=== PATIENT | female | born 1950 | race Native Hawaiian/Other Pacific Islander ===

== ENCOUNTER 2016-09-15 15:54 | Emergency (ER) | payer OTHER, MEDICARE ==
[~2016-09-15] VITALS: Ht 149.9 cm; Wt 73.6 kg
[~2016-09-15 15:54] MED LIST: ALBU2.5V4 INHALATION; BECL8.7A5 IH; CITA20TA11 PO; CYCL5TAB PO; FAMO40TA6 PO; FLUT16SP NS; HYDR-4003 PO; INSLIS SUBQ; INSU100V7 SUBQ; KEN25CR EXT; LIP40 PO; LOSA100T29 PO; METF500T4 PO; METH750T3 PO; METO50TA3 PO; MULT-1073 PO; OXYC-465 PO
[2016-09-15 16:15] VITALS: BP 159/75; PULSE 73; RESP 14; O2SAT 96
--- NOTE | 2016-09-15 16:25 | ED.REPORT ---
HPI-General Illness Date of Service September 15, 2016 ED Provider: Yogesh Ardon MD Pt is a 66 y/o female w/ a hx of chronic upper back pain due to injury in 2014, CAD, NIDDM, HTN, asthma, anxiety, presenting to the ED c/o spasming right-upper back pain onset 3 weeks ago. Pain is exacerbated by movement, bending and twisting, and deep breathing. She denies CP, fever, chills, cough, abdominal pain, numbness, weakness, bowel or bladder incontinence, dysuria. She denies any recent trauma. She has no history of lung disease. She has been taking Oxycodone for her chronic back pain which she states "knocks her out" but doesn' t touch the pain. She states this pain is different than her typical chronic back pain. Nursing Notes Stated Complaint: UPPER BACK PAIN,HARD TO BREATH Chief Complaint: Back Pain or Injury Nursing Notes Reviewed: Yes Allergies: Coded Allergies: Penicillins (Verified Allergy, Severe, 04/12/14) codeine (Verified Allergy, Severe, UNKNOWN, 04/12/14) iodine (Verified Allergy, Severe, 04/12/14) latex (Verified Allergy, Severe, 04/12/14) povidone (Verified Allergy, Severe, RASH, 04/12/14) lisinopril (Verified Allergy, Unknown, 08/10/15) metoclopramide (Verified Allergy, Unknown, 08/10/15) Uncoded Allergies: TAPES (Allergy, Unknown, PAPER TAPE OK OTHERS RASH, 10/12/04) Scheduled Atorvastatin (Lipitor) 40 Mg Tablet 40 MG PO DAILY Beclomethasone Dipropionate (Qvar) 8.7 Gm Aer.w.adap 8.7 GM IH BID Citalopram (Citalopram) 20 Mg Tablet 20 MG PO DAILY Famotidine (Famotidine) 40 Mg Tablet 40 MG PO HS Insulin Glargine (Lantus U100 Insulin Vial) 100 Unit/Ml Vial 50 UNIT SUBQ QAM Insulin Glargine (Lantus U100 Insulin Vial) 100 Unit/Ml Vial 35 UNIT SUBQ QPM Losartan Potassium (Losartan Potassium) 100 Mg Tablet 100 MG PO DAILY Metformin (Metformin) 500 Mg Tablet 500 MG PO TID Metoprolol Tartrate (Metoprolol Tartrate) 50 Mg Tablet 25 MG PO BID Multivits-Min/FA/Lycopene/Lut (Centrum Silver Tablet) 1 Each Tablet 1 EACH PO DAILY Scheduled PRN Albuterol Neb Soln (Albuterol Neb Soln) 2.5 Mg/3 Ml Vial.neb 2.5 MG INHALATION Q4H PRN PRN For Shortness of Breath Cyclobenzaprine (Cyclobenzaprine) 5 Mg Tablet 5 MG PO TID PRN PRN Spasm Fluticasone Propionate (Fluticasone Propionate Nasal) 16 Gm [place].susp 2 SPRAY NS BID PRN PRN seasonal allergies Hydrocodone-Acetaminophen 5-325 mg (Hydrocodone-Acetaminophen 5-325 mg) 1 Each Tablet 1 TABLET PO Q4H PRN PRN For Pain Insulin Human Lispro (HumaLOG U100 Insulin Vial) 100 Unit/Ml Unit 18-25 UNIT SUBQ TID PRN PRN sliding scale Check blood sugars before meals and at bedtime. Use correction factor only before meals. Blood Sugar Lispro Correction: <151, 0 units; 151-175, 1 unit; 176-200, 2 units; 201-225, 3 units; 226-250, 4 units; 251-275, 5 units; 276-300 , 6 units; 301-325, 7 units; 326-350, 8 units; 351-375, 9 units; 376-400, 10 units; >400, 12 units. Methocarbamol (Methocarbamol) 750 Mg Tablet 750 MG PO BID PRN PRN For Spasm Triamcinolone Acet (Triamcinolone Acetonide Cream) 1 Applic/0.25 Gm Cr 1 APPLIC EXT 3-4xdaily PRN PRN rash oxyCODONE-Acetaminophen 7.5-325 mg (oxyCODONE-Acetaminophen 7.5-325 mg) 1 Each Tablet 1-2 TAB PO Q6H PRN PRN For Pain General Time Seen by MD: 16:24 Chief Complaint Back pain Hx Obtained From: Patient Arrived By: Walk-in Sudden in Onset?: No Onset Occurred: More than a week ago... (3 weeks) Symptom Duration: Since onset Location: : Back Quality: Painful Severity: Current: Moderate Severity: Maximum: Severe Recent Healthcare: Previous diagnosis, Prior workup Similar Sx Previous: Yes Past Medical History Past Medical History Notes: Last Admit, Asthma - 08/01- Past Medical History Anxiety Sleep apnea Chronic back pain caused by prior injury Reports: Asthma, Coronary artery disease, Diabetes mellitus, Hypertension Past Surgical History PTCA in 2006 for coronary disease Reports: Cholecystectomy Reports: Carpal tunnel Family History grandfather: enlargement of the heart father: at 70 [place] denies any family history of PE, or deep vein thrombosis, cancer, immobilization. Smoking History Never Smoker Social History Alcohol Use: Denies alcohol use Drug Use: Denies drug use Ambulatory Status Independent Review of Systems Full Review of Systems Constitutional: Denies: Chills, Fever Respiratory: Reports: Pleuritic pain, Shortness of breath, Denies: Non-productive cough Cardiovascular: Denies: Chest pain, Dyspnea on exertion GI: Denies: Abdominal pain, Nausea, Vomiting Female: Denies: Dysuria, Flank pain Musculoskeletal: Reports: Back pain, Thoracic pain Neurologic: Denies: Bladder dysfunction, Bowel dysfunction Complete sys rev & neg: except as marked. Physical Exam Vital Signs Vital Signs Date Time Temp Pulse Resp B/P Pulse Ox O2 Delivery O2 Flow Rate FiO2 09/15/16 16:15 36.8 73 14 159/75 96 Room Air Initial VS: Reviewed, Vital signs normal Head / Eyes: Atraumatic, Normocephalic, PERRL ENT: Mucous membranes moist, Conjunctiva normal, No scleral icterus Neck: Supple, Full range of motion Respiratory: Breath sounds normal, Clear to auscultation, No respiratory distress Cardiovascular: Regular rate & rhythm, Heart sounds normal, Intact distal pulses Abdomen / GI: Soft, Non-tender, No guarding, No rebound, No distention Extremities: Vascular intact, Neuro intact, No swelling, No tenderness Skin: Warm, Dry, No cyanosis Neurologic: Alert, Oriented, Nonfocal Psychiatric: Mood/affect normal, Behavior normal, Normal thought content General/Constitutional: Awake, Alert, Cooperative, Not toxic appearing Distress / Hydration: Positive: Distress mild Appearance / Presentation: Positive: In pain, Uncomfortable Back: Full range of motion Appears very uncomfortable with movement Reproducible tenderness with palpation of the right lateral chest wall Interpretation & Diagnostics Lab Results Interpretation Result Diagram: 09/15/16 1824 09/15/16 1824 Test 09/15/16 18:24 09/15/16 20:25 White Blood Count 9.1th/mm3 (3.8-10.1) Red Blood Count 3.86mil/mm3 (3.90-5.20) Hemoglobin 11.2g/dL (12.0-15.6) Hematocrit 35.2% (35.0-46.0) Mean Corpuscular Volume 91.2fL (81-100) Mean Corpuscular Hemoglobin 29.0pg (27.0-35.0) Mean Corpuscular Hemoglobin Concent 31.8% (32.0-37.0) Red Cell Distribution Width 12.5% (12.3-15.4) Platelet Count 253bil/L (150-400) Neutrophils (%) (Auto) 49.5% (40-74) Lymphocytes (%) (Auto) 36.0% (14-46) Monocytes (%) (Auto) 10.1% (4-12) Eosinophils (%) (Auto) 4.1% (0-5) Basophils (%) (Auto) 0.2% (0-3) D-Dimer < 0.50mg/L FEU (<0.50) Sodium Level 138mEq/L (134-144) Potassium Level 3.8mEq/L (3.5-5.2) Chloride Level 99mEq/L (97-108) Carbon Dioxide Level 26mmol/L (18-29) Blood Urea Nitrogen 19mg/dL (8-27) Creatinine 0.74mg/dL (0.57-1.00) Estimat Glomerular Filtration Rate 112mL/min (>59) Glucose Level 207mg/dL (60-99) Calcium Level 9.2mg/dL (8.5-10.1) Magnesium Level 1.8mg/dL (1.6-2.6) Total Bilirubin 0.4mg/dL (0.0-1.2) Aspartate Amino Transf (AST/SGOT) 20U/L (0-50) Alanine Aminotransferase (ALT/SGPT) 19U/L (0-32) Alkaline Phosphatase 99U/L (25-165) Troponin T < 0.010ug/L (0.0-0.011) Total Protein 7.3g/dL (6.4-8.4) Albumin 3.8g/dL (3.4-5.0) Hold Espitia Top Tube Received (Received) ECG Interpretation Time: 19:55 Interpreted by: ED physician Normal ECG Interpretation: Normal ECG w/ rate of... (66), Normal rate, Normal sinus rhythm, No acute ischemic changes, Normal QRS, Normal axis, Normal intervals, No change from prior ECGs, Adequate tracing X-Ray Chest Interpretation Chest Xray Interpretation: IMPRESSION: No acute process. Dictated by: Arie Gorman M.D. on 09/15/2016 at 19:01 Approved by: Arie Gorman M.D. on 09/15/2016 at 19:01 View: Portable, 1 view Interpretation / Wet Read by: Interpret - Radiologist Re-Eval/Medical Decision Med Decision/Clinical Course Pt is a 66 y/o female w/ a hx of chronic upper back pain due to injury in 2014, CAD, NIDDM, HTN, asthma, anxiety, presenting to the ED c/o spasming right-upper back pain onset 3 weeks ago. Pain is exacerbated by movement, bending and twisting, and deep breathing. She denies CP, fever, chills, cough, abdominal pain, numbness, weakness, bowel or bladder incontinence, dysuria. She denies any recent trauma. She has no history of lung disease. She has been taking Oxycodone for her chronic back pain which she states "knocks her out" but doesn' t touch the pain. She states this pain is different than her typical chronic back pain. Here in the emergency department the patient is afebrile stable vital signs and examination as above. Her pain is easily reproducible by movement and palpation. Labs notable as below: CBC: Unremarkable CMP: Unremarkable other than glucose of 207 Troponin negative D-dimer negative UA: Trace blood, otherwise unremarkable CXR: Obtained, reviewed and interpreted by myself shows no evidence of infiltrates, effusions or pneumothorax. Cardiac and mediastinal silhouette normal. No bony or soft tissue abnormalities. EKG: Normal ECG w/ rate of... (66), Normal rate, Normal sinus rhythm, No acute ischemic changes, Normal QRS, Normal axis, Normal intervals, No change from prior ECGs, Adequate tracing At this time, overall presentation is most consistent with musculoskeletal pain. She is already on chronic oxycodone for pain and I do not feel that further treatment with narcotic pain medications as indicated. I offered her Lidoderm patches however she states that she is allergic. She also states that she cannot take NSAIDs. I have advised her to take Tylenol 650 mg 3 times a day , stretch and apply ice packs/hot packs. I considered other causes of the patient's presentation today including acute coronary syndrome however the nature of her pain is not suggestive thereof and initial screening EKG and troponin are reassuring. She has no physical exam findings suggestive of DVT and she is relatively at low risk for pulmonary embolism. I opted to obtain a d -dimer which was negative and at this time my suspicion for PE is extremely low. I also considered renal colic as a cause of her pain however she has only trace blood on her urinalysis and her pain is not colicky in nature or classically suggestive of kidney stone. I do not feel that further workup for kidney stone as indicated. There are no findings suggestive of UTI. Discussed findings as above with the patient and she is comfortable with discharge. She is happy with this plan. She will follow up closely with her primary care physician. Prior to discharge follow-up and return precautions were reviewed in detail with the patient who verbalized understanding and agreement with the plan. The patient was discharged in stable condition. Counseled Regarding: Diagnosis, Need for follow-up, When/why to return to ED Discharge & Departure Primary Impression: Chest wall pain Additional Impressions: History of back injury Muscle spasm Chronic pain Chronic pain type: other chronic pain Qualified Code: G89.29 - Other chronic pain Opiate dependence Substance use status: with unspecified opioid-induced disorder Qualified Code : F11.29 - Opioid dependence with unspecified opioid-induced disorder Disposition: Home Discharge Condition All VS Reviewed: Yes Condition: Stable Additional Instructions: Thank you for seeking care at the emergency room. It is difficult for us to make definitive diagnoses in the ED but we believe that you are experiencing muscle pain. Our primary goal today in the ED was to evaluate you for any life-threatening conditions. Your evaluation was reassuring. I recommend using ice packs/hot packs and stretching. He may take Tylenol 650 mg 3 times a day. You should follow-up with your primary doctor in the next week. You should return to the ED immediately if you develop increasing pain, bloody your urine, difficulty breathing, fevers, vomiting, cough, shortness of breath, chest pain, lightheadedness, weakness or any other concerning signs or symptoms. Thank you for letting us partake in your care today. Referrals: Krzysztof Bates MD (PCP) Scribe Attestation Portions of this note were transcribed by Ashwin Collado. I, Dr. Joyner personally performed the history, physical exam and medical decision-making; I reviewed and confirmed the accuracy of the information in the transcribed note. Signed by Yousif Stephen, 09/15/16 - 1805 copies to: Krzysztof Bates MD, Beck O MD September 15, 2016 16:25 ASHWIN COLLADO September 15, 2016 16:30
[2016-09-15 18:34] LABS: BASOPHILS % (AUTO) 0.2 % (0-3); EOSINOPHILS % (AUTO) 4.1 % (0-5); MONOCYTES % (AUTO) 10.1 % (4-12); Mean Corpuscular Volume 91.2 fL (81-100); NEUTROPHILS % (AUTO) 49.5 % (40-74); Platelet Count 253 bil/L (150-400)
[2016-09-15 18:56] LABS: TROPONIN T < 0.010 ug/L (0.0-0.011)
--- NOTE | 2016-09-15 19:03 | DRSVH ---
PROCEDURE: X-RAY CHEST, TWO VIEWS ([id number]) INDICATIONS: CHEST PAIN TECHNIQUE: 2 views of the chest were acquired. COMPARISON: [facility], CR, XR CHEST 2VW, 04/30/2015, 0:00. FINDINGS: Surgical changes and devices: None. Lungs and pleura: No pleural effusions or pneumothorax. Lungs are clear. Mediastinum: Mediastinal contours are normal. Heart size is enlarged. Bones and chest wall: No suspicious bony abnormalities. Soft tissues appear unremarkable. IMPRESSION: No acute process. Dictated by: Arie Gorman M.D. on 09/15/2016 at 19:01 Approved by: Arie Gorman M.D. on 09/15/2016 at 19:01
[2016-09-15 19:07] LABS: Magnesium 1.8 mg/dL (1.6-2.6)
[2016-09-15 20:33] LABS: APPEARANCE,URINE CLEAR (CLEAR,HAZY); COLOR,URINE STRAW (YELLOW); OCCULT BLOOD,URINE NEGATIVE (NEGATIVE); UROBILINOGEN,URINE NORMAL (NORMAL)
[2016-09-15 20:41] VITALS: BP 157/62; PULSE 74; RESP 16; O2SAT 94
== END 2016-09-15 20:42 | disposition home or self-care (01) ==
LOC: SED 15:54
DX: R07.9 Chest pain, unspecified (principal); M62.838 Other muscle spasm; G89.29 Other chronic pain; F11.29 Opioid dependence with unspecified opioid-induced disorder; E11.9 Type 2 diabetes mellitus without complications; I25.10 Atherosclerotic heart disease of native coronary artery without angina pectoris; I10 Essential (primary) hypertension; Z87.828 Personal history of other (healed) physical injury and trauma; Z79.84 Long term (current) use of oral hypoglycemic drugs; Z79.4 Long term (current) use of insulin; Z79.899 Other long term (current) drug therapy; Z88.0 Allergy status to penicillin; Z88.5 Allergy status to narcotic agent; Z88.8 Allergy status to other drugs, medicaments and biological substances; Z91.040 Latex allergy status

== ENCOUNTER 2016-09-27 07:43 | Emergency (ER) | payer OTHER, MEDICARE ==
[~2016-09-27] VITALS: Ht 162.6 cm; Wt 73.6 kg
--- NOTE | 2016-09-27 07:40 | ED.REPORT ---
HPI-Abd Pain F 40 and Over Date of Service Sep 27, 2016 ED Provider: Dr. Romero Pt is a 66 y/o female w/ a hx of chronic pain with opiate dependence, CAD, IDDM , HTN, presenting to the ED via EMS c/o sudden onset periumbilical abdominal pain which began 04:00 today. The patient told EMS she began to experience severe sudden onset periumbilical abdominal pain radiating to all 4 quadrants. She apparently has never experienced abdominal pain like this previously. EMS reports 1 episode of emesis while on route. She was apparently in quite a bit of distress and was given Fentanyl and Phenergan. She arrives moderately sedated and unable to provide a history. Nursing Notes Stated Complaint: ABDOMINAL PAIN Nursing Notes Reviewed: Yes Allergies: Coded Allergies: Penicillins (Verified Allergy, Severe, 04/12/14) codeine (Verified Allergy, Severe, UNKNOWN, 04/12/14) iodine (Verified Allergy, Severe, 04/12/14) latex (Verified Allergy, Severe, 04/12/14) povidone (Verified Allergy, Severe, RASH, 04/12/14) aspirin (Verified Allergy, Unknown, 09/27/16) lisinopril (Verified Allergy, Unknown, 08/10/15) metoclopramide (Verified Allergy, Unknown, 08/10/15) Uncoded Allergies: TAPES (Allergy, Unknown, PAPER TAPE OK OTHERS RASH, 10/12/04) Scheduled Atorvastatin (Lipitor) 40 Mg Tablet 40 MG PO DAILY Beclomethasone Dipropionate (Qvar) 8.7 Gm Aer.w.adap 8.7 GM IH BID Citalopram (Citalopram) 20 Mg Tablet 20 MG PO DAILY Famotidine (Famotidine) 40 Mg Tablet 40 MG PO HS Insulin Glargine (Lantus U100 Insulin Vial) 100 Unit/Ml Vial 50 UNIT SUBQ QAM Insulin Glargine (Lantus U100 Insulin Vial) 100 Unit/Ml Vial 35 UNIT SUBQ QPM Losartan Potassium (Losartan Potassium) 100 Mg Tablet 100 MG PO DAILY Metformin (Metformin) 500 Mg Tablet 500 MG PO TID Metoprolol Tartrate (Metoprolol Tartrate) 50 Mg Tablet 25 MG PO BID Multivits-Min/FA/Lycopene/Lut (Centrum Silver Tablet) 1 Each Tablet 1 EACH PO DAILY Scheduled PRN Albuterol Neb Soln (Albuterol Neb Soln) 2.5 Mg/3 Ml Vial.neb 2.5 MG INHALATION Q4H PRN PRN For Shortness of Breath Cyclobenzaprine (Cyclobenzaprine) 5 Mg Tablet 5 MG PO TID PRN PRN Spasm Fluticasone Propionate (Fluticasone Propionate Nasal) 16 Gm Brady.susp 2 SPRAY NS BID PRN PRN seasonal allergies Hydrocodone-Acetaminophen 5-325 mg (Hydrocodone-Acetaminophen 5-325 mg) 1 Each Tablet 1 TABLET PO Q4H PRN PRN For Pain Insulin Human Lispro (HumaLOG U100 Insulin Vial) 100 Unit/Ml Unit 18-25 UNIT SUBQ TID PRN PRN sliding scale Check blood sugars before meals and at bedtime. Use correction factor only before meals. Blood Sugar Lispro Correction: <151, 0 units; 151-175, 1 unit; 176-200, 2 units; 201-225, 3 units; 226-250, 4 units; 251-275, 5 units; 276-300 , 6 units; 301-325, 7 units; 326-350, 8 units; 351-375, 9 units; 376-400, 10 units; >400, 12 units. Methocarbamol (Methocarbamol) 750 Mg Tablet 750 MG PO BID PRN PRN For Spasm Triamcinolone Acet (Triamcinolone Acetonide Cream) 1 Applic/0.25 Gm Cr 1 APPLIC EXT 3-4xdaily PRN PRN rash oxyCODONE-Acetaminophen 7.5-325 mg (oxyCODONE-Acetaminophen 7.5-325 mg) 1 Each Tablet 1-2 TAB PO Q6H PRN PRN For Pain General Time Seen by MD: 07:42 Chief Complaint Abdominal pain Hx Obtained From: Patient, EMS Arrived By: Ambulance Sudden in Onset?: Yes Onset Occurred: 1 - 4 hours ago Symptom Duration: Since onset Progression since Onset: Gradually improving Location: : Periumbilical Quality: Painful Radiation: : LLQ: LUQ: RLQ: RUQ Severity: Current: No pain currently Severity: Maximum: Severe Similar Sx Previous: No Past Medical History Past Medical History Anxiety Sleep apnea Chronic back pain caused by prior injury Right thyroid nodule s/p removal Reports: Asthma, Coronary artery disease, Diabetes mellitus, Hypertension Past Surgical History PTCA in 2005 for coronary disease Right thyroid nodule removal Reports: Cholecystectomy Reports: Carpal tunnel Family History grandfather: enlargement of the heart father: at 70 NM denies any family history of PE, or deep vein thrombosis, cancer, immobilization. Smoking History Never Smoker Social History Alcohol Use: Denies alcohol use Drug Use: Denies drug use Ambulatory Status Independent Review of Systems Constitutional: Denies: Chills, Fever Respiratory: Denies: Non-productive cough, Shortness of breath Cardiovascular: Denies: Chest pain, Dyspnea on exertion GI: Reports: Abdominal pain, Nausea, Vomiting Complete sys rev & neg: except as marked. Physical Exam Vital Signs Vital Signs (First) Date Time Temp Pulse Resp B/P Pulse Ox O2 Delivery O2 Flow Rate FiO2 09/27/16 07:44 36.8 67 17 135/49 95 Room Air Initial VS: Reviewed, Vital signs normal ENT: Mucous membranes moist, Conjunctiva normal, No scleral icterus Neck: Supple, Full range of motion Extremities: Vascular intact, Neuro intact, No swelling, No tenderness Skin: Warm, Dry, No cyanosis Psychiatric: Mood/affect normal, Behavior normal, Normal thought content General/Constitutional: Awake, Alert, No acute distress, Cooperative, Not toxic appearing Somnolent but arousable Respiratory / Chest: Breath sounds NL, Breath sounds = bilat, No respiratory distress, No rales, No rhonchi, No wheezing, No retractions, No stridor Cardiovascular: Heart rate NL, Regular rhythm, Heart sounds NL, No murmurs, Cap refill not delayed, Peripheral circulation NL Periph CV / BP Differential: Positive: Peripheral pulses 2+ (PT) Abdomen: Atraumatic, Soft, No guarding, No rebound, No distention, No palpable mass Tenderness/Guarding/Rebound: Positive: Tender epigastric, Negative: Tender LLQ..., Tender LUQ..., Tender RLQ..., Tender RUQ... Non-tender although sedated therefore exam is limited Back: Full range of motion, Painless range of motion Head / Eyes: Atraumatic, Normocephalic Pinpoint pupils Neurologic: No motor deficits, No sensory deficits Somnolent but arousable Interpretation & Diagnostics Lab Results Interpretation Result Diagram: 09/27/16 0816 09/27/16 0816 Test 09/27/16 08:16 09/27/16 08:35 09/27/16 10:05 09/27/16 11:47 White Blood Count 8.1th/mm3 (3.8-10.1) Red Blood Count 4.01mil/mm3 (3.90-5.20) Hemoglobin 11.8g/dL (12.0-15.6) Hematocrit 36.7% (35.0-46.0) Mean Corpuscular Volume 91.5fL (81-100) Mean Corpuscular Hemoglobin 29.4pg (27.0-35.0) Mean Corpuscular Hemoglobin Concent 32.2% (32.0-37.0) Red Cell Distribution Width 12.2% (12.3-15.4) Platelet Count 274bil/L (150-400) Neutrophils (%) (Auto) 59.9% (40-74) Lymphocytes (%) (Auto) 27.1% (14-46) Monocytes (%) (Auto) 7.9% (4-12) Eosinophils (%) (Auto) 4.7% (0-5) Basophils (%) (Auto) 0.2% (0-3) Sodium Level 136mEq/L (134-144) Potassium Level 4.2mEq/L (3.5-5.2) Chloride Level 98mEq/L (97-108) Carbon Dioxide Level 24mmol/L (18-29) Blood Urea Nitrogen 19mg/dL (8-27) Creatinine 0.67mg/dL (0.57-1.00) Estimat Glomerular Filtration Rate 125mL/min (>59) Glucose Level 243mg/dL (60-99) Calcium Level 9.2mg/dL (8.5-10.1) Magnesium Level 1.8mg/dL (1.6-2.6) Total Bilirubin 0.6mg/dL (0.0-1.2) Aspartate Amino Transf (AST/SGOT) 16U/L (0-50) Alanine Aminotransferase (ALT/SGPT) 18U/L (0-32) Alkaline Phosphatase 102U/L (25-165) Total Protein 7.2g/dL (6.4-8.4) Albumin 3.8g/dL (3.4-5.0) Lipase 95U/L (13-60) Troponin T 0.010ug/L (0.0-0.011) Hold Red Top Tube Received (Received) Hold Rentz Top Tube Received (Received) Urine Color Straw (YELLOW) Urine Appearance Clear (CLEAR,HAZY) Urine pH 6.0 (5.0-8.0) Urine Specific [place] 1.020 (1.003-1.035) Urine Protein 30mg/dL (NEG,TRACE) Urine Glucose (UA) 500mg/dL (NEGATIVE) Urine Ketones Negativemg/dL (NEGATIVE) Urine Occult Blood Negative (NEGATIVE) Urine Nitrite Negative (NEGATIVE) Urine Bilirubin Negative (NEGATIVE) Urine Urobilinogen Normalmg/dL (NORMAL) Urine Leukocyte Esterase Negative (NEGATIVE) Urine RBC 0-2/hpf (0-2) Urine WBC 0-5/hpf (0-5) Urine Epithelial Cells Occasional/hpf (NONE-MOD) Urine Crystals None seen (NONE SEEN) Urine Bacteria None/hpf (NONE-FEW) Urine Hyaline Casts None/lpf (NONE) Urine Granular Casts None seen (NONE SEEN) Urine Waxy Casts None seen (NONE SEEN) Urine Red Blood Cell Casts None seen (NONE SEEN) Urine White Blood Cell Casts None seen (NONE SEEN) Urine Mucus None seen (None Seen) Urine Trichomonas None seen (NONE SEEN) Urine Yeast None (NONE SEEN) Urinalysis Comment None Urine Culture Reflexed Not indicated Lactic Acid Level 2.3mmol/L (0.4-2.0) ECG Interpretation ECG Interpretation: Sinus rhythm rate [address] changes Time: 08:03 Interpreted by: ED physician Normal ECG Interpretation: No acute ischemic changes CT Abd / Pelvis Interpretation IMPRESSION: 1. Cause of abdominal pain is not identified. No inflammation mass stone or obstruction is seen. 2. Previous cholecystectomy. Small hiatal hernia. Dictated by: Gino Doherty M.D. on 09/27/2016 at 9:06 Approved by: Gino Doherty M.D. on 09/27/2016 at 9:11 Study type: Abdominal CT no contrast Interpretation / Wet Read by: Interpret - Radiologist Re-Eval/Medical Decision Med Decision/Clinical Course Patient presents severely sedated with report of severe abdominal pain. Her initial outside abdominal exam at arrival is reassuring however given her level of sedation from paramedics, more resource intensive workup was performed which included basic labs and a CAT scan. No IV contrast could be given because of an iodine allergy. Her noncontrast CT is normal with normal caliber aorta. She has intact and symmetric distal dorsalis pedis pulses with a normal blood pressure this seems unlikely to be aortic dissection. After the medication from paramedics had cleared she is complaining of mild epigastric discomfort and repeat exam does not show focal rebound or guarding. These symptoms resolved after a dose of GI cocktail. Through the entirety of the rest of her ER visit she has remained asymptomatic. Her vital signs have remained normal with the exception of a single episode of tachypnea. Troponin is performed to exclude atypical NM, lipase is minimally out of range but not clinically consistent with pancreatitis. She continues to feel better and asymptomatic after GI cocktail and IV fluids, she has been ambulatory to the restroom and back without event. Serial lactic acid's continue to trend downward. Overall picture is nonspecific however cannot identify a life-threatening cause for her symptoms. Etiology such as aortic dissection, mesenteric ischemia, perforated viscus, pancreatitis, cholecystitis, diverticulitis or abscess, or other life-threatening intra-abdominal pathology seem less likely. Patient is feeling better and is agreeable for discharge. Will prescribe Zofran. Strict return and follow-up precautions given. Re-Evaluation/Progress #1: Time of Eval: 08:31 Re-Evaluation/Progress Note: Pt rechecked. No longer sedated. She concurs with the history given by medics. Her pain has decreased. Re-Evaluation/Progress #2: Time of Eval: 09:05 Re-Evaluation/Progress Note: Pt rechecked. She is now more awake. She reports her pain is all epigastric. She now has mild epigastric pain to palpation and is non-tender in all 4 quadrants. No Rebound or Guarding on exam. Re-Evaluation/Progress #3: Time of Eval: 10:20 )( Re-Eval Abdomen: Soft, Non-tender, No guarding, No rebound Patient Status: Condition resolved Re-Evaluation/Progress Note: Pain resolved after Gi cocktail, rpt abd exam and vital signs reassuring Re-Evaluation/Progress #4: Time of Eval: 12:30 )( Re-Eval Abdomen: Soft, Non-tender, No guarding, No rebound, McBurney's non-tender, No distention Evaluation: Abdomen soft/non-tender, Mental status normal, Neurologic nonfocal Re-Evaluation/Progress Note: Discussed lab results and patient ambulated to and from the restroom without event. She feels better. Able for discharge home. Return in follow-up precautions discussed. Counseled Regarding: Diagnosis, Need for follow-up, When/why to return to ED Discharge & Departure Primary Impression: Abdominal pain Abdominal location: epigastric Qualified Code: R10.13 - Epigastric pain Disposition: Home Discharge Condition All VS Reviewed: Yes Condition: Stable Patient Instructions: Acute Abdominal Pain (ED) Additional Instructions: The cause of your pain is uncertain, but does not seem dangerous at this point. Your labs were reassuring and the CT scan was normal. Follow-up with your doctor on Thursday or Thursday if symptoms persist. Return to the emergency department immediately for worsening or uncontrolled pain, fever, shaking chills, persistent vomiting, or for other concerning symptoms. Referrals: Krzysztof Bates MD (PCP) Tamikaibe Attestation Portions of this note were transcribed by Ashwin Collado. I, Dr. Romero personally performed the history, physical exam and medical decision-making; I reviewed and confirmed the accuracy of the information in the transcribed note. Signed by Yousif Stephen, 09/27/16 - 08 Attending Statement See MDM copies to: Krzysztof Bates MD, Timothy S DO Sep 27, 2016 07:40 ASHWIN COLLADO Sep 27, 2016 07:43 Seamus Bird Sep 27, 2016 09:13
[2016-09-27 07:44] VITALS: BP 135/49; PULSE 67; RESP 17; O2SAT 95
[2016-09-27] MEDS ORDERED: 0.9% Sodium Chloride 1,000 ML IV ONE ×2 (07:49→10:45)
[2016-09-27] MEDS ORDERED: Ondansetron 2 mg/mL 2 mL Inj IVPUSH PRN (07:50)
[2016-09-27 08:23] LABS: BASOPHILS % (AUTO) 0.2 % (0-3); EOSINOPHILS % (AUTO) 4.7 % (0-5); MONOCYTES % (AUTO) 7.9 % (4-12); Mean Corpuscular Hemoglobin 29.4 pg (27.0-35.0); Mean Corpuscular Volume 91.5 fL (81-100); NEUTROPHILS % (AUTO) 59.9 % (40-74); Platelet Count 274 bil/L (150-400)
[2016-09-27 08:45] LABS: Magnesium 1.8 mg/dL (1.6-2.6)
[2016-09-27 09:06] VITALS: BP 125/40; PULSE 71; RESP 25; O2SAT 97
--- NOTE | 2016-09-27 09:12 | DRSVH ---
PROCEDURE: CT ABDOMEN AND PELVIS WITHOUT CONTRAST ([id number]) INDICATIONS: abd pain, iodine allergy TECHNIQUE: Noncontrast 5 mm thick sections acquired from the diaphragms to the symphysis. 5 mm coronal and sagi ttal reformats were then performed. For radiation dose reduction, the following was used: automated exposure control, adjustment of mA and/or kV according to patient size. COMPARISON: None. FINDINGS: Image quality: Good ABDOMEN: Lung bases: Lung bases reveal minimal subsegmental atelectasis. Heart size is normal. Small hiatal hernia. Solid organs: Liver and spleen are normal in size. Gallbladder previous cholecystectomy. Pancreas is normal in contours. No adrenal nodules. Kidneys are normal in size, without hydronephrosis or ne phrolithiasis. Peritoneum and bowel: Unenhanced bowel loops demonstrate normal wall thickness and caliber. No free fluid or air. Normal appendix Nodes and vessels: No retroperitoneal or mesenteric adenopathy by size criteria. Aorta and inferior vena cava are normal in caliber. Atherosclerotic calcifications are present. Miscellaneous: Small fatty umbilical hernia is present PELVIS: Genitourinary: Bladder wall thickness is normal. Uterus is not enlarged. Miscellaneous: No inguinal hernias or adenopathy. Bones: No suspicious bony lesions. No vertebral body compression fractures. IMPRESSION: 1. Cause of abdominal pain is not identified. No inflammation mass stone or obstruction is seen. 2. Previous cholecystectomy. Small hiatal hernia. Dictated by: Gino Doherty M.D. on 09/27/2016 at 9:06 Approved by: Gino Doherty M.D. on 09/27/2016 at 9:11
[2016-09-27] MEDS ORDERED: LidocaineVisc 2%:Antacid 1:1 10 mL Syringe PO ONE (09:20)
[2016-09-27 10:09] VITALS: BP 136/47; PULSE 73; RESP 17; O2SAT 97
[2016-09-27 10:50] LABS: APPEARANCE,URINE CLEAR (CLEAR,HAZY); COLOR,URINE STRAW (YELLOW)
[2016-09-27 10:51] LABS: OCCULT BLOOD,URINE NEGATIVE (NEGATIVE); UROBILINOGEN,URINE NORMAL (NORMAL)
[2016-09-27 11:40] VITALS: BP 125/49; PULSE 72; RESP 16; O2SAT 95
[2016-09-27] MEDS ORDERED: ONDA4TAB9 PO (12:43)
[2016-09-27 13:02] VITALS: BP 147/53; PULSE 68; RESP 13; O2SAT 97
== END 2016-09-27 12:53 | disposition home or self-care (01) ==
LOC: SED 07:43
DX: R10.13 Epigastric pain (principal); R11.10 Vomiting, unspecified; I11.9 Hypertensive heart disease without heart failure; E11.59 Type 2 diabetes mellitus with other circulatory complications; I25.10 Atherosclerotic heart disease of native coronary artery without angina pectoris; J45.909 Unspecified asthma, uncomplicated; F41.9 Anxiety disorder, unspecified; Z95.5 Presence of coronary angioplasty implant and graft; Z90.49 Acquired absence of other specified parts of digestive tract; Z79.4 Long term (current) use of insulin; Z79.84 Long term (current) use of oral hypoglycemic drugs; Z88.0 Allergy status to penicillin; Z88.5 Allergy status to narcotic agent; Z88.8 Allergy status to other drugs, medicaments and biological substances; Z91.040 Latex allergy status
CPT/HCPCS: 36415; 74176; 80053; 81000; 83605; 83690; 83735; 84484; 85025; 93005; 96360; 96361; 99285; J7030

== ENCOUNTER → 2016-12-29 | Day surgery (SDC) | payer OTHER, MEDICARE ==
[~2016-12-29] VITALS: Ht 149.9 cm; Wt 72.5 kg
[2016-12-29] VITALS (14 sets, daily range): BP systolic 116–156; BP diastolic 47–65; PULSE 68–92; RESP 14–22; O2SAT 91–100
[~2016-12-29] MED LIST changes: +ASPI-973 PO; -BECL8.7A5 IH; +BECL8.7A5 INHALATION; +Bupivacaine-MPF 0.5% 30 mL Inj INFILTRATE ONE; +CHOL200025 PO; -CYCL5TAB PO; +Dexamethasone 4 mg/mL Inj IVPUSH PRN; +EPHEDrine Sulfate 50 mg/mL Inj IVPUSH PRN; +FELO5TAB4 PO; -HYDR-4003 PO; +Ketamine 10 mg/mL 20 mL Inj ONE; +Lactated Ringer's 1,000 ML IV ONE; +Lactated Ringer's 1,000 ML IV SCH; +Lactated Ringer's 500 ML IV PRN; +METF1000 PO; -METF500T4 PO; -METH750T3 PO; -METO50TA3 PO; -OXYC-465 PO; +OXYC1TAB24 PO; +Ondansetron 2 mg/mL 2 mL Inj IVPUSH PRN; +Ondansetron 2 mg/mL 2 mL Inj ONE; +POLY17PO6 PO; +Phenylephrine 10,000 mCg/mL Inj IVPUSH PRN; +Propofol 10,000 mCg/mL 20 mL Inj ONE; +VIT1CAPS27 PO; +VIT1TABL83 PO; +fentaNYL-PF 50 mCg/mL 2 mL Inj IVPUSH PRN; +fentaNYL-PF 50 mCg/mL 2 mL Inj ONE; +oxyCODONE-Acetamin 5-325 mg Tablet PO ONE
--- NOTE | 2016-12-29 07:52 | PCM.HPANE ---
Patient Data Surgeon Admitting Provider: Attending Provider:Chan Reynolds MD Primary Care Physician:Krzysztof Bates MD Other Provider:Emma Ayalaingham Anesthesia Reason for Visit Right Breast Cancer Ht/WT & BMI Height (Feet): 4 Height (Inches): 11 Weight (Kilograms): 73.48 Body Mass Index 32.00 Allergies Coded Allergies: Penicillins (Verified Allergy, Severe, 12/29/16) codeine (Verified Allergy, Severe, UNKNOWN, 12/29/16) iodine (Verified Allergy, Severe, 12/29/16) latex (Verified Allergy, Severe, 12/29/16) povidone (Verified Allergy, Severe, RASH, 12/29/16) aspirin (Verified Allergy, Unknown, 12/29/16) lidocaine (Verified Allergy, Unknown, Rash,Itching,, 12/29/16) lisinopril (Verified Allergy, Unknown, 12/29/16) metoclopramide (Verified Allergy, Unknown, 12/29/16) povidone-iodine (Verified Allergy, Unknown, 12/29/16) soap (Verified Allergy, Unknown, 12/29/16) Uncoded Allergies: TAPES (Allergy, Unknown, PAPER TAPE OK OTHERS RASH, 10/12/04) Past Anesthesia History Anesthesia History: Denies:: Abnormal Airway, Anesthesia Reactions, Difficult Intubation, Fam Anesthesia Reaction Diabetes History Hx Diabetes?: Yes (lst Hgb A1c 7.4- 12/2015) Type of Diabetes: Type II Glycemic Control: Insulin & Oral Medication MRSA MRSA: No Medications Blood Thinner: Aspirin Hypertension Medication: Yes Home Meds Incl Beta Nemo: Yes Active Scripts Polyethylene Glycol 3350 (Miralax)17 Gm Powd.pack17 Gm PO DAILY #1 BOTTLE Prov:Melissa Peña MD 12/29/16 oxyCODONE-Acetaminophen 5-325 mg 1 Each Tablet1 Tab PO Q6H PRN For Pain #5 TABLET Prov:Melissa Peña MD 12/29/16 Reported Medications Cholecalciferol (Vitamin D3) (Vitamin D3)2,000 Unit Tablet2,000 Unit PO DAILY 12/19/16 Vit B Comp/C/FA/Iron/Vit E (Vitamin B Complex Tablet)1 Each Tablet1 Each PO DAILY 12/19/16 Triamcinolone Acet (Triamcinolone Acetonide Cream)1 Applic/0.25 Gm Cr1 Applic EXT BID #60 GM Ref 0 12/19/16 Beclomethasone Dipropionate (Qvar)8.7 Gm Aer.w.adap1 Puff INHALATION BID #8.7 GM 12/19/16 Vit C/Ro AC/Lut/Copper/Znox (Preservision Lutein Softgel)1 Each Capsule1 Each PO DAILY 12/19/16 oxyCODONE-Acetaminophen 5-325 mg 1 Each Tablet1 Tab PO Q6H PRN For Pain Ref 0 12/19/16 Metformin (Glucophage)1,000 Mg Tablet1,000 Mg PO BID Ref 0 12/19/16 Losartan Potassium 100 Mg Kyiqtj221 Mg PO DAILY 12/19/16 Insulin Glargine (Lantus U100 Insulin Vial)100 Unit/Ml Vial40 Unit SUBQ BID #1 VIAL Ref 0 12/19/16 Insulin Human Lispro (HumaLOG U100 Insulin Vial)100 Unit/Ml Nsct42-12 Unit SUBQ TIDAC PRN blood glucose #1 VIAL Ref 0 Check blood sugars before meals and at bedtime. Use correction factor only before meals. Blood Sugar Lispro Correction: <151, 0 units; 151-175, 1 unit; 176-200, 2 units; 201-225, 3 units; 226-250, 4 units; 251-275, 5 units; 276-300, 6 units; 301-325, 7 units; 326-350, 8 units; 351-375, 9 units; 376-400, 10 units; >400, 12 units. 12/19/16 Fluticasone Propionate (Fluticasone Propionate Nasal)16 Gm [place].susp1 [place] NS BID #16 GM Ref 0 12/19/16 Felodipine ER 5 Mg Tab.er.24h5 Mg PO DAILY Ref 0 12/19/16 Famotidine 40 Mg Ukffac40 Mg PO HS Ref 0 12/19/16 Citalopram 20 Mg Lzawra17 Mg PO DAILY Ref 0 12/19/16 Multivits-Min/FA/Lycopene/Lut (Centrum Silver Tablet)1 Each Tablet1 Each PO DAILY 12/19/16 Atorvastatin (Lipitor)40 Mg Dgchsd29 Mg PO DAILY Ref 0 12/19/16 Aspirin 81 Mg Zfyzav93 Mg PO DAILY Ref 0 12/19/16 Albuterol Neb Soln 2.5 Mg/3 Ml Vial.neb2.5 Mg INHALATION Q4H PRN For Shortness of Breath Ref 0 12/19/16 History History of ENT Problems?: Yes HEENT History: Positive for:: Cataracts (bilateral surgery) Sinus Problem (seasonal allergies) Denies:: Abnormal Airway Difficult Intubation Dysphagia Denture Type: None Teeth Condition: Within Normal Limits Hx of Heart Problems?: Yes Cardiovascular History: Positive for:: Edema Heart Murmur (at ) Hypertension Denies:: Chest Pain Congestive Heart Failure Hx of Respiratory Problem?: Yes Respiratory History: Positive for:: Asthma Dyspnea Pneumonia Use of C-PAP Machine Denies:: COPD Oxygen Administration Tuberculosis Hx Neurologic Problems?: Yes Neurological History: Positive for:: Dizziness Headaches Denies:: CVA Multiple Sclerosis Parkinson's Disease Seizures Hx of GI Problems?: Yes Hx of Problems?: Yes Genitourinary History: Positive for:: Urinary Tract Infection (has frequent) Denies:: Kidney Stones Female Hx: Positive for:: Problems with Breasts? (right breast current admission problem) Denies:: Currently Skin History: Denies:: History Skin Disorders? Pressure Ulcers Hx Musculoskeletal Problems?: Yes Musculoskeletal History: Positive for:: Back Injury (hx of back injury) Denies:: Fibromyalgia Osteoarthritis Hx of Psycho/Social Problems?: Yes Psycho Social History: Positive for:: Anxiety Hx Depression Denies:: Bipolar Disorder Suicide Attempt Hx Surgeries?: Yes (bushra, rt thyroid lobectomy, gee cataracts) Hx Any Other Health Problems?: Yes Other History: Positive for:: Cancer (breast current admission problem) Hospitalization Thyroid Disease (rt thyroid lobectomy) Denies:: Endocrine Disease History Blood Transfusions: Denies:: Blood Transfuse Reaction Blood Transfusions Hx Diabetes: Yes (lst Hgb A1c 7.4- 12/2015) Hx Alcohol Use: NoHx Substance Use: No Smoking Status: Never Smoker Have You Smoked inLast 12 mo: No Stop/Bang Treated for Sleep Apnea?: No Do You Have a CPAP Machine?: No P-Blood Pressure: treated: Yes B- Body Mass Index > 35 kg/m2: No A- Age over 50: Yes N- Neck Large Circumference: No G- Gender Male: No KENZIE Risk Assessment: Low Risk, <3 Yes Risk Assessment Category Category 1A: Patient has history of documented sleep apnea, and HAS NOT received any narcotic, sedative or anesthesia administration during this stay. Category 1B: Patient has history of documented sleep apnea, and HAS received any narcotic , sedative or anesthesia administration during this stay Category 2: Patient has SUSPECTED Obstructive Sleep Apnea, and HAS received any narcotic , sedative or anesthesia administration during this stay. Category 3: Patient has SUSPECTED Obstructive Sleep Apnea and HAS NOT received narcotic, sedative or anesthesia administration during this stay. Category 4: Outpatient in Procedural Areas with known sleep apnea or who screen positive for High Risk via the STOP/BANG questionnaire. Exam Exam General Appearance: Alert, Oriented X3, Cooperative, No Acute Distress HEENT/AIRWAY: MP 2 Lungs: Clear to Auscultation, Normal Air Movement Heart: Exam Unremarkable, Regular Rate/Rhythm, No Murmurs/Rubs/Gallops Plan Impression Patient chart reviewed, patient interviewed and anesthestic plan with risks, benefits, and alternatives discussed, and informed consent obtained. NPO per Anesth. Guidelines: Yes ASA Physical Status: ASA2 Mod Systemic Disease Anesthetic Plan: GA Bene/Risks/Altern/Consents: Yes HP Complete Prior to Induction: Yes Agusto Mcallister MD Dec 29, 2016 07:52
--- NOTE | 2016-12-29 15:51 | PCM.SURGOP ---
Surgical Operative Report Date of Service: Dec 29, 2016 Pre Operative Diagnosis Right breast cancer, upper outer quadrant Post Operative Diagnosis Same Procedure: Right partial mastectomy, right axillary sentinel lymph node biopsy, adjacent tissue transfer less than 30 cm, intraoperative breast ultrasound Surgeon and Manufacturing Cost Estimator: Surgeon: Chan Reynolds MD Assistants: Melissa Peña MD PGY 4; Giancarlo Moreno PA-C; Bernice Shah MS3 Indication for Procedure 66-year-old woman who was found on screening mammograms to have a lobulated nodule in the right breast upper outer quadrant. Imaging demonstrated a 2.7 cm mass by additional views, 2.2 cm on breast MRI. 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 Following her imaging workup, it was apparent that the lesion was palpable. After discussion of risks and benefits, she agreed to proceed with right partial mastectomy, right axillary sentinel lymph node biopsy. Findings: There were 2 sentinel nodes, both clinically negative. Procedure Details After smooth induction of general anesthesia with an LMA, she was placed in the supine position with both arms out. An intraoperative ultrasound was performed to diya out the approximate area of the tumor on the skin. Assessment of the axilla with the gamma probe revealed an excellent radiotracer signal, so methylene blue was not utilized. She was prepped and draped in wide sterile fashion. A procedural pause was performed according to the SCOAP checklist, and all found to be in agreement. A circumareolar incision was made in the right breast upper outer quadrant. Dissection was carried through the superficial subcutaneous tissue. Skin flaps were raised throughout the entire upper outer quadrant, elevating the skin and subcutaneous tissue off the underlying anterior mammary fascia. Circumferential dissection was then carried out with electrocautery over the palpable lesion. The lesion was excised, close to, but not all the way to the pectoralis muscle. The excised specimen was oriented with suture. A specimen x-ray confirmed the mammographic density in the mammographic clip. It was sent for permanent pathology, labeled as right breast tissue, upper outer quadrant. Separate shave margins were obtained from the posterior aspect of the cavity and the inferior aspect of the cavity. These were oriented separately with suture, and sent for permanent pathology. The cavity was marked with hemoclips circumferentially. The new posterior margin was the pectoralis fascia. Next, breast parenchymal flaps were raised medially and inferolaterally. Breast parenchymal flaps measured approximately 5 x 3 cm each. The breast tissue was elevated off the underlying pectoralis fascia. Skin flaps were raised until there was no puckering. The breast parenchyma was closed with interrupted 3-0 Vicryl sutures. A separate curvilinear incision was made at the inferior border of the hairbearing skin in the right axilla. Dissection was carried through the soft tissue until the axillary fascia was incised. Using the gamma probe as a guide, the area of maximum radiotracer activity was identified and dissected free from the surrounding tissues. There were 2 separate sentinel nodes. Ex vivo, the first sentinel node had a gamma count of 2040. It was sent for permanent pathology labeled as right axillary sentinel node #1. There was a persistent radiotracer signal in the right axilla at this point. Just deep to the first node, a second sentinel node was identified, dissected free from the surrounding tissue with electrocautery. Ex vivo, its gamma count was 990. It was sent for permanent pathology, labeled as right axillary sentinel node #2. At this point, the background count in the right axilla was 18. There were no pathologic nodes by palpation. Hemostasis was adequate. The axillary fascia was closed with interrupted 3-0 Vicryl suture. Both skin incisions were closed with running 4-0 Vicryl subcuticular sutures. Steri-Strips and sterile dressings were applied. At the end of the case all needle and sponge counts were correct 2. The patient was awakened from anesthesia without difficulty, and taken to the recovery room in satisfactory condition, having tolerated the procedure well. Assistance from a physician assistant project manager was critical to the safe performance of this operation by providing retraction and exposure. Complications There were no periprocedural complications identified. Surgical Specimen Removed: Yes Specimen sent to Pathology: Yes Surgical Specimen description: Right breast tissue, upper outer quadrant. Right breast posterior margin. Right breast inferior margin. Right axillary sentinel node #1. Right axillary sentinel node #2. Anesthetic Plan: GA Grafts, Implants: None Output, Estimated Blood Loss: 20 Blood Administration during peres: No Drains: None Catheters: None copies to: Krzysztof Bates MD; Lilia Esposito MD; Tavo Goyal MD, Joshua D MD Dec 29, 2016 15:51
--- NOTE | 2016-12-29 17:50 | DRSVH ---
PROCEDURE: NM SENTINEL NODE INJECTION ONLY, RIGHT BREAST RADIOPHARMACEUTICAL: 0.5 mCi Millipore filtered Tc-99m sulfur colloid. INDICATIONS: pre-op, in DSC PROCEDURE: The indications, alternatives, benefits, risks, and complications of the procedure were explained to the patient. Written informed consent was obtained and placed in the chart. The area around the nip ple was prepped and draped in a sterile fashion. Tc-99m sulfur colloid was injected in the outer edg e of the areola in the right breast. No image was obtained. IMPRESSION: Administration of radiotracer into the right breast periareolar region for intra-operati ve sentinel lymph node localization. Dictated by: Corin Schuler M.D. on 12/29/2016 at 17:48 Approved by: Corin Schuler M.D. on 12/29/2016 at 17:48
--- NOTE | 2016-12-30 06:55 | DRSVH ---
SPECIMEN RIGHT BREAST: 12/29/2016 CLINICAL: Breast specimen. Correlation is made to exams dated: 12/02/2016 breast MRI - [facility], 10/28/2016 ultraso und biopsy, 10/14/2016 mammogram, 10/14/2016 ultrasound, 09/09/2016 mammogram, and 04/05/2014 mammogram - [facility]. A lumpectomy specimen was imaged for the lobulated solid mass located in the right breast at 10 o'cl ock anterior depth. IMPRESSION: SPECIMEN The imaged specimen includes the lesion and a biopsy clip. This exam was interpreted at Station ID: [id number]. Gino nichole/:12/29/2016 15:36:07 Additional referring physicians: MARLENE NAQVI, GISELE GENTILE
== END | disposition home or self-care (01) ==
LOC: SAS 10:50
PROVIDERS: ATTEND Student in an Organized Health Care Education/Training Program
DX: C50.411 Malignant neoplasm of upper-outer quadrant of right female breast (principal); I10 Essential (primary) hypertension; I25.10 Atherosclerotic heart disease of native coronary artery without angina pectoris; E11.9 Type 2 diabetes mellitus without complications; E78.5 Hyperlipidemia, unspecified; J45.909 Unspecified asthma, uncomplicated; K21.9 Gastro-esophageal reflux disease without esophagitis; M19.90 Unspecified osteoarthritis, unspecified site; G47.33 Obstructive sleep apnea (adult) (pediatric); Z17.0 Estrogen receptor positive status [ER+]; Z79.4 Long term (current) use of insulin; Z86.010 Personal history of colon polyps; Z79.84 Long term (current) use of oral hypoglycemic drugs
CPT/HCPCS: 14001; 19301; 38525; 38792; 76098; A9541; J1100; J2405; J2704; J3010; J7120

== ENCOUNTER 2017-01-09 17:45 | Emergency (ER) | payer OTHER, MEDICARE ==
[~2017-01-09] VITALS: Ht 149.9 cm; Wt 73.2 kg
[~2017-01-09 17:45] MED LIST changes: -Bupivacaine-MPF 0.5% 30 mL Inj INFILTRATE ONE; -Dexamethasone 4 mg/mL Inj IVPUSH PRN; -EPHEDrine Sulfate 50 mg/mL Inj IVPUSH PRN; -Ketamine 10 mg/mL 20 mL Inj ONE; -Lactated Ringer's 1,000 ML IV ONE; -Lactated Ringer's 1,000 ML IV SCH; -Lactated Ringer's 500 ML IV PRN; -Ondansetron 2 mg/mL 2 mL Inj IVPUSH PRN; -Ondansetron 2 mg/mL 2 mL Inj ONE; -Phenylephrine 10,000 mCg/mL Inj IVPUSH PRN; -Propofol 10,000 mCg/mL 20 mL Inj ONE; -fentaNYL-PF 50 mCg/mL 2 mL Inj IVPUSH PRN; -fentaNYL-PF 50 mCg/mL 2 mL Inj ONE; -oxyCODONE-Acetamin 5-325 mg Tablet PO ONE
[2017-01-09 17:49] VITALS: BP 127/56; PULSE 80; RESP 18; O2SAT 78
[2017-01-09 18:50] VITALS: BP 119/49; PULSE 73; RESP 17; O2SAT 97
[2017-01-09 21:21] LABS: BASOPHILS % (AUTO) 0.3 % (0-3); MONOCYTES % (AUTO) 10.5 % (4-12); Mean Corpuscular Hemoglobin 29.4 pg (27.0-35.0); NEUTROPHILS % (AUTO) 53.7 % (40-74); Platelet Count 290 bil/L (150-400)
[2017-01-09 21:44] LABS: TROPONIN T 0.01 ug/L (0.0-0.011)
--- NOTE | 2017-01-09 21:45 | ED.REPORT ---
HPI-General Illness Date of Service Jan 09, 2017 ED Provider: Naif Ma MD The pt is a 66 y/o female with a hx of HTN, DM, CAD, and recent right breast lumpectomy who presents to the ED complaining of right sided chest pain, onset 6 hours ago. She describes it as 6/10 squeezing, non-radiating pain currently which goes up to 10/10 in severity. The pt has been experiencing this pain since her lumpectomy 2 weeks ago. She experienced some relief after an I&D 2 days ago but her pain returned today and was significantly worse. She took an oxycodone without significant relief. She denies any other sx including fever, chills, nausea, vomiting, left sided chest pain, SOB, abdominal pain, diarrhea, vomiting, dysuria, and hematochezia. Nursing Notes Stated Complaint: CHEST PAIN, POST OP Chief Complaint: Chest Pain-Non Cardiac Nature Nursing Notes Reviewed: Yes Allergies: Coded Allergies: Penicillins (Verified Allergy, Severe, 12/29/16) codeine (Verified Allergy, Severe, UNKNOWN, 12/29/16) iodine (Verified Allergy, Severe, 12/29/16) latex (Verified Allergy, Severe, 12/29/16) povidone (Verified Allergy, Severe, RASH, 12/29/16) aspirin (Verified Allergy, Unknown, 12/29/16) lidocaine (Verified Allergy, Unknown, Rash,Itching,, 12/29/16) lisinopril (Verified Allergy, Unknown, 12/29/16) metoclopramide (Verified Allergy, Unknown, 12/29/16) povidone-iodine (Verified Allergy, Unknown, 12/29/16) soap (Verified Allergy, Unknown, 12/29/16) Uncoded Allergies: TAPES (Allergy, Unknown, PAPER TAPE OK OTHERS RASH, 10/12/04) Scheduled Aspirin (Aspirin) 81 Mg Tablet 81 MG PO DAILY Atorvastatin (Lipitor) 40 Mg Tablet 40 MG PO DAILY Beclomethasone Dipropionate (Qvar) 8.7 Gm Aer.w.adap 1 PUFF INHALATION BID Cholecalciferol (Vitamin D3) (Vitamin D3) 2,000 Unit Tablet 2,000 UNIT PO DAILY Citalopram (Citalopram) 20 Mg Tablet 20 MG PO DAILY Famotidine (Famotidine) 40 Mg Tablet 40 MG PO HS Felodipine ER (Felodipine ER) 5 Mg Tab.er.24h 5 MG PO DAILY Fluticasone Propionate (Fluticasone Propionate Nasal) 16 Gm Erhard.susp 1 SPRAY NS BID Insulin Glargine (Lantus U100 Insulin Vial) 100 Unit/Ml Vial 40 UNIT SUBQ BID Losartan Potassium (Losartan Potassium) 100 Mg Tablet 100 MG PO DAILY Metformin (Glucophage) 1,000 Mg Tablet 1,000 MG PO BID Multivits-Min/FA/Lycopene/Lut (Centrum Silver Tablet) 1 Each Tablet 1 EACH PO DAILY Polyethylene Glycol 3350 (Miralax) 17 Gm Powd.pack 17 GM PO DAILY Triamcinolone Acet (Triamcinolone Acetonide Cream) 1 Applic/0.25 Gm Cr 1 APPLIC EXT BID Vit B Comp/C/FA/Iron/Vit E (Vitamin B Complex Tablet) 1 Each Tablet 1 EACH PO DAILY Vit C/Ro AC/Lut/Copper/Znox (Preservision Lutein Softgel) 1 Each Capsule 1 EACH PO DAILY Scheduled PRN Albuterol Neb Soln (Albuterol Neb Soln) 2.5 Mg/3 Ml Vial.neb 2.5 MG INHALATION Q4H PRN PRN For Shortness of Breath Insulin Human Lispro (HumaLOG U100 Insulin Vial) 100 Unit/Ml Unit 18-25 UNIT SUBQ TIDAC PRN PRN blood glucose Check blood sugars before meals and at bedtime. Use correction factor only before meals. Blood Sugar Lispro Correction: <151, 0 units; 151-175, 1 unit; 176-200, 2 units; 201-225, 3 units; 226-250, 4 units; 251-275, 5 units; 276-300 , 6 units; 301-325, 7 units; 326-350, 8 units; 351-375, 9 units; 376-400, 10 units; >400, 12 units. oxyCODONE-Acetaminophen 5-325 mg (oxyCODONE-Acetaminophen 5-325 mg) 1 Each Tablet 1 TAB PO Q6H PRN PRN For Pain oxyCODONE-Acetaminophen 5-325 mg (oxyCODONE-Acetaminophen 5-325 mg) 1 Each Tablet 1 TAB PO Q6H PRN PRN For Pain General Time Seen by MD: 20:19 Chief Complaint Chest pain Hx Obtained From: Patient Arrived By: Walk-in Sudden in Onset?: No Onset Occurred: 5 - 8 hours ago Symptom Duration: Since onset Location: : Chest Quality: Painful Radiation: : Does not radiate Severity: Current: Pain level 6 out of 10 Severity: Maximum: Pain level 10 out of 10 Recent Healthcare: Recent doctor visit, Previous surgery Past Medical History Past Medical History Anxiety Sleep apnea Chronic back pain caused by prior injury Right thyroid nodule s/p removal Breast cancer (s/p right lumpectomy) Reports: Asthma, Coronary artery disease, Diabetes mellitus, Hypertension Past Surgical History PTCA in 2005 for coronary disease Right thyroid nodule removal Right breast lumpectomy Reports: Cholecystectomy Reports: Carpal tunnel Family History grandfather: enlargement of the heart father: at 70 [place] denies any family history of PE, or deep vein thrombosis, cancer, immobilization. Smoking History Never Smoker Social History Alcohol Use: Denies alcohol use Drug Use: Denies drug use Ambulatory Status Independent Review of Systems Full Review of Systems Constitutional: Denies: Chills, Fever Eyes: Denies: Visual loss bilateral Ears / Nose / Throat: Denies: Sore throat Respiratory: Denies: Shortness of breath Cardiovascular: Reports: Chest pain (right sided chest wall pain; denies chest pain otherwise) GI: Denies: Abdominal pain, Diarrhea, Hematochezia, Nausea, Vomiting Female: Denies: Dysuria Musculoskeletal: Denies: Back pain Skin: Denies Rash Neurologic: Denies: Headache, Lightheaded Psychiatric: Denies: Change mental status Complete sys rev & neg: except as marked. Physical Exam Nursing note and vitals reviewed. Constitutional: Well-developed, well-nourished. Not diaphoretic. Head: Normocephalic and atraumatic. Mouth/Throat: Oropharynx is clear and moist. No oropharyngeal exudate. Eyes: EOM are normal. Pupils are equal, round, and reactive to light. Neck: Supple, no tracheal deviation. Cardiovascular: Normal rate,regular rhythm. Equal and intact distal pulses throughout. Pulmonary/Chest: Effort normal and breath sounds normal. No respiratory distress. Indurated and tender area above the areola on the right. Well healing surgical scar around the right areola. It does not appear infected. Abdominal: Soft. No distension. There is no tenderness, rebound, or guarding. Bowel sounds present. Musculoskeletal: Range of motion grossly intact, moving all extremities. No edema or tenderness appreciated. Neurological: AOx3. Grossly nonfocal exam. Strength and sensation intact and equal to bilateral upper and lower extremities. Skin: Warm and dry, no rashes or pallor appreciated. Psychiatric: Appropriate mood and affect. Behavior appears normal. Vital Signs Vital Signs Date Time Temp Pulse Resp B/P Pulse Ox O2 Delivery O2 Flow Rate FiO2 01/10/17 00:59 36.7 72 16 110/59 97 Room Air 01/09/17 22:12 36.7 76 16 106/54 97 Room Air 01/09/17 18:50 37.3 73 17 119/49 97 Room Air 01/09/17 17:49 37.2 80 18 127/56 78 Room Air Initial VS: Reviewed Interpretation & Diagnostics Lab Results Interpretation Result Diagram: 01/09/17211601/09/172116 Test 01/09/17 21:17 White Blood Count 11.7th/mm3 (3.8-10.1) Red Blood Count 3.37mil/mm3 (3.90-5.20) Hemoglobin 9.9g/dL (12.0-15.6) Hematocrit 31.0% (35.0-46.0) Mean Corpuscular Volume 92.0fL (81-100) Mean Corpuscular Hemoglobin 29.4pg (27.0-35.0) Mean Corpuscular Hemoglobin Concent 31.9% (32.0-37.0) Red Cell Distribution Width 12.0% (12.3-15.4) Platelet Count 290bil/L (150-400) Neutrophils (%) (Auto) 53.7% (40-74) Lymphocytes (%) (Auto) 29.3% (14-46) Monocytes (%) (Auto) 10.5% (4-12) Eosinophils (%) (Auto) 6.0% (0-5) Basophils (%) (Auto) 0.3% (0-3) Sodium Level 138mEq/L (134-144) Potassium Level 4.1mEq/L (3.5-5.2) Chloride Level 99mEq/L (97-108) Carbon Dioxide Level 26mmol/L (18-29) Blood Urea Nitrogen 17mg/dL (8-27) Creatinine 0.69mg/dL (0.57-1.00) Estimat Glomerular Filtration Rate 121mL/min (>59) Glucose Level 200mg/dL (60-99) Calcium Level 8.6mg/dL (8.5-10.1) Magnesium Level 1.7mg/dL (1.6-2.6) Total Bilirubin 0.2mg/dL (0.0-1.2) Aspartate Amino Transf (AST/SGOT) 13U/L (0-50) Alanine Aminotransferase (ALT/SGPT) 14U/L (0-32) Alkaline Phosphatase 94U/L (25-165) Troponin T 0.010ug/L (0.0-0.011) Total Protein 7.0g/dL (6.4-8.4) Albumin 3.5g/dL (3.4-5.0) Hold Espitia Top Tube Received (Received) ECG Interpretation ECG Interpretation: Normal sinus rhythm. Rate 72. No acute ischemic changes. Time: 21:09 Interpreted by: ED physician Re-Eval/Medical Decision Med Decision/Clinical Course 66-year-old female presenting to the ED for evaluation of right-sided chest wall pain in the setting of recent lumpectomy. She is not having any chest pain or shortness of breath otherwise, and states that this is clearly where she had her procedure performed. According to the patient, she had what sounds like a hematoma drained by Dr. Reynolds several days ago when she had similar complaints. She is afebrile, nontoxic appearing; I do not think that there is evidence of systemic infection at this time. She does have a mild leukocytosis with a white blood cell count of 11.7 and her hemoglobin is 9.9 from 11.8 3 months ago; CBC otherwise grossly within normal limits. CMP within normal limits. Troponin negative. EKG with no acute ischemic changes. I discussed the case with Dr. Koenig, who kindly agreed to evaluate the patient. He performed an aspiration at bedside with improvement in her symptoms. She has outpatient follow-up arranged. Plan discharge home with careful return precautions, PCP and general surgery follow-up. Patient agreeable to the plan as stated, no further questions. Time of Eval: 20:28 Re-Evaluation/Progress Note: Discussed the plan to consult surgery. The pt understands and agrees with the plan. All questions answered. Time of Eval: 00:12 Patient Status: Condition improved Re-Evaluation/Progress Note: Rechecked pt. Discussed lab results, diagnosis and plan to discharge. Pt understands and agrees with the plan. F/U instruction and RTER warning given. All questions addressed. Consultation #1: Referral / Consult Name: Silver Burleson MD Consulted With: Surgeon Call Returned at: 23:14 Coke Worker: Will see patient Note: Dr. Burleson will see the pt. Consultation #2: Referral / Consult Name: Silver Burleson MD Consulted With: Surgeon Call Returned at: 23:41 Note: Dr. Burleson will do an I&D in the ED. Counseled Regarding: Diagnosis, Lab results, Need for follow-up, When/why to return to ED Discharge & Departure Primary Impression: Chest wall hematoma Encounter type: initial encounter Laterality: right Qualified Code: S20.211A - Contusion of right front wall of thorax, initial encounter Disposition: Home Discharge Condition All VS Reviewed: Yes Condition: Stable Patient Instructions: Incision and Drainage (ED) Additional Instructions: Return to the ED if you notice any worsening swelling, pain, fever, chills, developed chest pain, or if there is anything else of concern to you. Referrals: Krzysztof Bates MD (PCP) Scribe Attestation Portions of this note were transcribed by Seamus Bird. I,, personally performed the history,physical exam and medical decision-making;I reviewed and confirmed the accuracy of the information in the transcribed note. Signed by Yousif Mayen. 01/09/17 copies to: Krzysztof Bates MD, William B MD Jan 09, 2017 21:45 Seamus Bird Jan 09, 2017 22:16
[2017-01-09 21:55] LABS: Magnesium 1.7 mg/dL (1.6-2.6)
[2017-01-09 22:12] VITALS: BP 106/54; PULSE 76; RESP 16; O2SAT 97
[2017-01-10 00:59] VITALS: BP 110/59; PULSE 72; RESP 16; O2SAT 97
--- NOTE | 2017-01-10 04:22 | ER ---
[address] [address] EMERGENCY DEPARTMENT REPORT PATIENT: NAKIA MARES : 1950 MR#: [id number] ADMIT: 01/09/2017 JOB ID: [id number] DATE OF SERVICE: CHIEF COMPLAINT/IDENTIFICATION: I have been asked by Dr. Ma to see this 66-year-old female in the emergency department for recurrent right breast seroma. HISTORY OF PRESENT ILLNESS: The patient underwent a left partial mastectomy and sentinel node dissection on the right for breast cancer on December [address] Reynolds. She was seen on January 06 [facility] with a seroma that was aspirated. The seroma has reaccumulated and she now complains of pain in her right breast and all the way to the midline. She has had no fever. In the emergency department, she is afebrile, normal vital signs. Clinically, she has a recurrent right breast seroma but without significant erythema. PROCEDURE: Aspiration of right breast seroma. SURGEON: Silver Burleson MD. DESCRIPTION OF PROCEDURE: At the bed side after performing a time-out, I prepped the right breast area over the seroma with alcohol and injected local anesthetic. I then used an 18-gauge needle to aspirate the seroma using a 60 cc syringe that was filled for approximately 30 cc until the seroma was dry. The fluid was bloody but clear. Dry dressing was applied. IMPRESSION/PLAN: Recurrent right breast seroma. We discussed the pros and cons of antibiotic treatment but given her extensive list of adverse reactions to antibiotics and the lack of obvious infection, I think we should merely plan for her to follow up on Thursday as planned with Dr. Reynolds. We did talk about the importance of compression to prevent recurrence of the seroma and that if she does have recurrence of the seroma, she may return to our emergency department over the weekend.
== END 2017-01-10 00:43 | disposition home or self-care (01) ==
LOC: SED 17:45
DX: S20.211A Contusion of right front wall of thorax, initial encounter (principal); Y84.8 Other medical procedures as the cause of abnormal reaction of the patient, or of later complication, without mention of misadventure at the time of the procedure; Y93.9 Activity, unspecified; Y92.9 Unspecified place or not applicable; Y99.9 Unspecified external cause status; I10 Essential (primary) hypertension; I25.10 Atherosclerotic heart disease of native coronary artery without angina pectoris; E11.9 Type 2 diabetes mellitus without complications; Z85.3 Personal history of malignant neoplasm of breast; Z88.0 Allergy status to penicillin; Z88.5 Allergy status to narcotic agent; Z88.8 Allergy status to other drugs, medicaments and biological substances; Z91.040 Latex allergy status; Z79.4 Long term (current) use of insulin; Z79.84 Long term (current) use of oral hypoglycemic drugs